=== PATIENT | female | born 1995 | race Caucasian/White ===

== ENCOUNTER 2018-07-14 18:42 | Emergency (ER) | payer MEDICAID ==
[~2018-07-14] VITALS: Ht 162.6 cm; Wt 46.7 kg
[~2018-07-14 18:42] MED LIST: DIL100L PO
[2018-07-14 19:06] VITALS: BP 109/70
--- NOTE | 2018-07-14 19:09 | NUR ---
PT TRIAGED AND SENT TO ER LOBBY
--- NOTE | 2018-07-14 20:45 | NUR ---
Reassessed. No new complaints or changes.
--- NOTE | 2018-07-14 21:53 | NUR ---
PT AMBULATED TO BED 10 AT THIS TIME.
--- NOTE | 2018-07-14 21:57 | NUR ---
22 Y/O F PT W/ C/O PAIN IN ABD AFTER DX OF PID FROM [facility]. 10/10 ABD PAIN. +NAUSEA; SKIN IS INTACT, PINK/WARM/DRY; AAOX4, PERRL, WITH EVEN AND STEADY GAIT; LUNGS CLEAR BL, BREATHING UNLABORED; HR EVEN AND REGULAR, BL PERIPHERAL PULSES PRESENT; BS ACTIVE X4, PT DENIES ANY FEVER, CP, SOB, OR COUGH AT THIS TIME; PT STATES 10/10 PAIN AT THIS TIME; VSS; PATIENT POSITIONED FOR COMFORT; HOB ELEVATED; BEDRAILS UP X2; BED DOWN. HX---PID, SEIZURES MEDS-- KEPPRA
[2018-07-14 21:59] LABS: APPEARANCE,URINE CLEAR (CLEAR); BILIRUBIN,URINE NEGATIVE (NEGATIVE); BLOOD, URINE NEGATIVE (NEGATIVE); COLOR,URINE YELLOW (YELLOW); LEUKOCYTE ESTERASE ,URINE NEGATIVE (NEGATIVE); NITRITE, URINE NEGATIVE (NEGATIVE); UGLUCOSE NEGATIVE (NEGATIVE)
[2018-07-14] MEDS ORDERED: KETOROLAC 30 MG/ML VIAL IM ONE (23:10)
[2018-07-14 23:43] LABS: BASOPHILS # (AUTO) 0.1 K/uL (0.00-0.22); BASOPHILS % (AUTO) 0.9 % (0.0-2.0); EOSINOPHILS # (AUTO) 0.1 K/uL (0-0.4); EOSINOPHILS % (AUTO) 1.3 % (0.0-4.0); HEMATOCRIT 40.4 % (36-48); HEMOGLOBIN 13.4 g/dL (12.0-16.0); LYMPHOCYTES # (AUTO) 2.5 K/uL (2.5-16.5); LYMPHOCYTES % (AUTO) 28.8 % (20.5-51.1); MEAN CORPUSCULAR HEMOGLOBIN 30 pg (27-31); MEAN CORPUSCULAR HGB CONC 33 g/dL (33-37); MEAN CORPUSCULAR VOLUME 91.7 fL (80-94); MONOCYTES # (AUTO) 0.6 K/uL (0.8-1.0); MONOCYTES % (AUTO) 6.5 % (1.7-9.3); NEUTROPHILS # (AUTO) 5.3 K/uL (1.8-7.7); NEUTROPHILS % (AUTO) 62.5 % (42.2-75.2); PLATELET COUNT (AUTO) 203 K/uL (140-450); RED CELL DISTRIBUTION WIDTH 12.5 % (11.6-13.7); WHITE BLOOD COUNT (AUTO) 8.5 K/uL (4.8-10.8)
--- NOTE | 2018-07-14 23:44 | NUR ---
PT TAKEN TO US
[2018-07-14 23:52] LABS: ANION GAP 12.9 (8-16); CARBON DIOXIDE 26.7 mmol/L (21-32); CREATININE 0.9 mg/dL (0.6-1.3); POTASSIUM 3.6 mmol/L (3.5-5.1)
[2018-07-14 23:58] LABS: ALBUMIN 4.4 g/dL (3.4-5.0); TOTAL BILIRUBIN 0.5 mg/dL (0.0-1.0)
[2018-07-15 00:02] LABS: BARBITURATE, URINE NEG. ng/ml (NEG <=200); BENZODIAZEPINE, URINE NEG. ng/mL (NEG <=200); CANNABINOID, URINE POS. ng/mL (NEG <=50); COCAINE, URINE NEG. ng/mL (NEG <=300); OPIATE, URINE POS. ng/mL (NEG <=2000); PHENCYCLIDINE SCREEN,URINE NEG. ng/mL (NEG <=25)
--- NOTE | 2018-07-15 01:25 | NUR ---
Female Merchandise Flow Manager KAROL LANDIS accompanied DR. LARES FOR female patient for Pelvic Exam.
--- NOTE | 2018-07-15 01:28 | NUR ---
REPORT GIVEN TO RIANA RN AT THIS TIME
--- NOTE | 2018-07-15 01:32 | NUR ---
GOT REPORT FROM KAROL LANDIS. PT RESTING IN BED, AAO X4, GCS 15. RESPIRATIONS EVEN AND UNLABORED. SKIN WARM/PINK/DRY, +PMSC. VSS, WILL CONTINUE TO MONITOR
[2018-07-15] MEDS ORDERED: cefTRIAXone 250 MG in LIDOCAINE MPF 1% - 5 mL VIAL 0.9 ML IM ONE (01:50)
[2018-07-15] MEDS ORDERED: cefTRIAXone 250 MG VIAL ONE (02:07)
[2018-07-15] MEDS ORDERED: LIDOCAINE 1% 50 ML ONE (02:08)
[2018-07-15 02:35] VITALS: BP 103/58
--- NOTE | 2018-07-15 02:35 | NUR ---
Patient discharged with v/s stable. Written and verbal after care instructions given and explained. Patient alert, oriented and verbalized understanding of instructions. Ambulatory with steady gait. All questions addressed prior to discharge. ID band removed. Patient advised to follow up with PMD. Rx of Naproxen, Murdock, and Doxycycline given. Patient educated on indication of medication including possible reaction and side effects. Opportunity to ask questions provided and answered.
== END 2018-07-15 02:35 | disposition home or self-care (01) ==
LOC: MED 18:42
DX: N83.202 Unspecified ovarian cyst, left side (principal)
CPT/HCPCS: 36415; 76830; 80053; 80305; 81003; 81025; 85025; 87210; 96372; 99285; J0696; J1885; J2001

== ENCOUNTER 2020-01-01 19:41 | Emergency (ER) | payer MEDICAID ==
[~2020-01-01] VITALS: Ht 162.6 cm; Wt 45.8 kg
[2020-01-01 19:45] VITALS: BP 113/77
--- NOTE | 2020-01-01 20:17 | NUR ---
COLLECTED URINE AND SENT TO LAB.
[2020-01-01 20:21] LABS: APPEARANCE,URINE CLOUDY (CLEAR); BILIRUBIN,URINE NEGATIVE (NEGATIVE); BLOOD, URINE TRACE-I (NEGATIVE); COLOR,URINE YELLOW (YELLOW); LEUKOCYTE ESTERASE ,URINE 1+ (NEGATIVE); NITRITE, URINE NEGATIVE (NEGATIVE); PH,URINE 6.5 (5.0-9.0); UGLUCOSE NEGATIVE (NEGATIVE)
[2020-01-01 20:47] LABS: RBC,URINE 0-5 /HPF (0-5); WBC,URINE 0-5 /HPF (0-5)
--- NOTE | 2020-01-01 21:12 | NUR ---
PT AMBULATED TO BED #2. STEADY GAIT.
--- NOTE | 2020-01-01 21:20 | NUR ---
24 Y/O PT PRESENTS TO ER WITH LLQ PAIN 9/10 X 1 DAY. PT STATES PAIN STARTED LAST NIGHT BUT WAS JUST A DULL PAIN 3/10. AT 12 PM TODAY, PT HAD A BURST OF PAIN 9/10 WITH SPOTTING/LIGHT BLEEDING. LLQ IS TTP. PT STATES IT HURTS TO WALK, BEND OVER, PAIN IS SHOOTING, SHARP, AND CONSTANT " I FEEL BLOATED ON MY LEFT OVARY SIDE" "FEELS LIKE CONTRACTIONS". LMP 12/25/19. PT STATES SHE WAS TOLD SHE HAD "CYST SIZE OF A MARBLE IN UTERUS, IN THE BEGINNING OF 2018 I THINK, BUT I NEVER FOLLOWED UP" DENIES SOB, COUGH. R/R EQUAL, AND UNLABORED. DENIES DIARRHEA, VOMITING. ALSO C/O NAUSEA. SIDE RAIL X1, WILL CONTINUE TO MONITOR ALLERGIES: DILANTIN PMH: SEIZURE; HYPOGLYCEMIA
[2020-01-01] MEDS ORDERED: AZITHROMYCIN 250 MG TAB PO ONE (22:15)
[2020-01-01] MEDS ORDERED: cefTRIAXone 250 MG in LIDOCAINE MPF 1% 0.9 ML IM ONE (22:15)
[2020-01-01] MEDS ORDERED: cefTRIAXone 250 MG VIAL ONE (22:20)
[2020-01-01] MEDS ORDERED: LIDOCAINE MPF 1% 5 ML ONE (22:21)
[2020-01-01] MEDS ORDERED: metroNIDAZOLE 250 MG TAB PO ONE (23:10)
--- NOTE | 2020-01-01 23:42 | NUR ---
Dr. Clark examining patient.
[2020-01-01 23:44] VITALS: BP 113/77
--- NOTE | 2020-01-01 23:44 | NUR ---
Patient discharged BY DR. MO with v/s stable. Written and verbal after care instructions given and explained BY DR. MO. Patient alert, oriented and verbalized understanding of instructions. Ambulatory with steady gait. All questions addressed BY DR. MO prior to discharge. ID band removed. Patient advised to follow up with PMD. Rx of DOXYCYCLINE given. Patient educated on indication of medication including possible reaction and side effects. Opportunity to ask questions provided and answered.
== END 2020-01-01 23:44 | disposition home or self-care (01) ==
LOC: MED 19:41
DX: N76.0 Acute vaginitis (principal); F17.210 Nicotine dependence, cigarettes, uncomplicated; R56.9 Unspecified convulsions; Z71.6 Tobacco abuse counseling; Z79.899 Other long term (current) drug therapy
CPT/HCPCS: 81001; 81025; 87086; 87210; 96372; 99283; J0696; J2001

== ENCOUNTER 2020-03-06 15:46 | Emergency (ER) | payer MEDICAID ==
[~2020-03-06] VITALS: Ht 162.6 cm; Wt 45.4 kg
--- NOTE | 2020-03-06 15:58 | NUR ---
PT AMBULATED TO BATHROOM, STEADY GAIT.
[2020-03-06 16:14] VITALS: BP 114/70
--- NOTE | 2020-03-06 16:22 | NUR ---
BRYN GONZALES AT BEDSIDE.
--- NOTE | 2020-03-06 16:22 | NUR ---
24 Y/F PRESENTS TO ED WITH LOW ABD PAIN, WORSE ON LLQ X 1 WEEK C LOOSE STOOLS. PT REPORTS "CRAMP, STABBING" PAIN , 05/16. PT REPORTS PAIN RADIATES TO B HIP AND LOW BACK PAIN. PT DENIES N/V/F. DENIES DYSURIA, HEMATURIA. ABD SOFT, BS ACTIVE X 4. PT COMPLAINS OF SORE THROAT X 1 WEEK WITH CHILLS, DENIES FEVER. PMH- SZ, HYPOGLYCEMIA, APENDECTOMY, ASTHMA RX- KEPPRA, CBD ALLERGIES- DILANTIN
--- NOTE | 2020-03-06 16:58 | NUR ---
Female Embedded Systems Engineer accompanied female patient for Pelvic Exam.
--- NOTE | 2020-03-06 17:09 | NUR ---
SPOKE TO AARTI FROM LAB TO [facility] WET [facility]OUNT AND URINE TEST.
[2020-03-06 18:10] VITALS: BP 110/68
--- NOTE | 2020-03-06 18:10 | NUR ---
Patient discharged with v/s stable. Written and verbal after care instructions given and explained. Patient alert, oriented and verbalized understanding of instructions. Ambulatory with steady gait. All questions addressed prior to discharge. ID band removed. Patient advised to follow up with PMD. Rx of Fluconazole, Tylenol, and Keflex given. Patient educated on indication of medication including possible reaction and side effects. Opportunity to ask questions provided and answered.
[2020-03-08 06:07] LABS: CHLAMYDIA TRACHOMATIS AMP DNA Negative (Negative)
== END 2020-03-06 18:10 | disposition home or self-care (01) ==
LOC: MED 15:46
DX: N76.0 Acute vaginitis (principal); N39.0 Urinary tract infection, site not specified; J45.909 Unspecified asthma, uncomplicated; Z90.49 Acquired absence of other specified parts of digestive tract; Z79.899 Other long term (current) drug therapy; Z88.8 Allergy status to other drugs, medicaments and biological substances
CPT/HCPCS: 36415; 81002; 81025; 87086; 87210; 87491; 99283

== ENCOUNTER 2020-04-02 12:55 | Emergency (ER) | payer MEDICAID ==
[~2020-04-02] VITALS: Ht 162.6 cm; Wt 45.4 kg
[2020-04-02 12:56] VITALS: BP 123/76
[2020-04-02] MEDS ORDERED: NACL 0.9% 1,000 ML IV ONE (13:25)
[2020-04-02] MEDS ORDERED: ONDANSETRON 4 MG/2 ML VIAL IVP ONE (13:25)
[2020-04-02] MEDS ORDERED: KETOROLAC 30 MG/ML VIAL IVP ONE (13:25)
[2020-04-02 13:46] LABS: BASOPHILS % (AUTO) 0.8 % (0.0-2.0); EOSINOPHILS # (AUTO) 0.1 K/uL (0-0.4); EOSINOPHILS % (AUTO) 1.7 % (0.0-4.0); HEMATOCRIT 40.6 % (36-48); HEMOGLOBIN 13.5 g/dL (12.0-16.0); LYMPHOCYTES # (AUTO) 1.5 K/uL (2.5-16.5); LYMPHOCYTES % (AUTO) 26.2 % (20.5-51.1); MEAN CORPUSCULAR HEMOGLOBIN 31 pg (27-31); MEAN CORPUSCULAR HGB CONC 33 g/dL (33-37); MEAN CORPUSCULAR VOLUME 93.9 fL (80-94); MONOCYTES # (AUTO) 0.6 K/uL (0.8-1.0); MONOCYTES % (AUTO) 9.6 % (1.7-9.3); NEUTROPHILS # (AUTO) 3.6 K/uL (1.8-7.7); NEUTROPHILS % (AUTO) 61.7 % (42.2-75.2); PLATELET COUNT (AUTO) 204 K/uL (140-450); RED BLOOD CELL COUNT(AUTO) 4.32 MIL/uL (4.20-5.40); RED CELL DISTRIBUTION WIDTH 12.6 % (11.6-13.7); WHITE BLOOD COUNT (AUTO) 5.8 K/uL (4.8-10.8)
[2020-04-02 14:10] LABS: ALBUMIN 4.4 g/dL (3.4-5.0); ANION GAP 18.9 (8-16); CARBON DIOXIDE 22.2 mmol/L (21-32); CREATININE 0.8 mg/dL (0.6-1.3); POTASSIUM 4.1 mmol/L (3.5-5.1); TOTAL BILIRUBIN 0.5 mg/dL (0.0-1.0)
[2020-04-02] MEDS ORDERED: ACETAMINOPHEN EXTRA STRENGTH 500 MG TAB PO ONE (15:25)
[2020-04-02 16:02] VITALS: BP 101/60
[2020-04-02 16:13] LABS: BILIRUBIN,URINE NEGATIVE (NEGATIVE); BLOOD, URINE NEGATIVE (NEGATIVE); COLOR,URINE YELLOW (YELLOW); LEUKOCYTE ESTERASE ,URINE 1+ (NEGATIVE); NITRITE, URINE NEGATIVE (NEGATIVE); UGLUCOSE NEGATIVE (NEGATIVE)
[2020-04-02 17:15] LABS: APPEARANCE,URINE HAZY (CLEAR)
[2020-04-02 17:16] LABS: RBC,URINE NONE SEEN /HPF (0-5); WBC,URINE 0-5 /HPF (0-5)
[2020-04-04 06:10] LABS: CHLAMYDIA TRACHOMATIS AMP DNA Negative (Negative)
== END 2020-04-02 16:00 | disposition home or self-care (01) ==
LOC: MED 12:55
DX: N39.0 Urinary tract infection, site not specified (principal); J45.909 Unspecified asthma, uncomplicated; F17.210 Nicotine dependence, cigarettes, uncomplicated; F12.90 Cannabis use, unspecified, uncomplicated; Z79.899 Other long term (current) drug therapy; Z88.8 Allergy status to other drugs, medicaments and biological substances; Z90.49 Acquired absence of other specified parts of digestive tract
CPT/HCPCS: 36415; 80053; 81001; 81025; 85025; 87070; 87086; 87205; 87210; 96374; 96375; 99284; J1885; J2405; J7030; 87491